=== PATIENT | male | born 2000 | race African-American/Black ===

== ENCOUNTER 2019-05-06 09:13 | Emergency (ER) | payer OTHER ==
[2019-05-06] MEDS ORDERED: Lidocaine 1% w/Epinephrine 1:100K 20 ML VIAL ONE (09:34)
== END 2019-05-06 10:15 ==
LOC: ERS 09:13
DX: S01.411A Laceration without foreign body of right cheek and temporomandibular area, initial encounter (principal); W11.XXXA Fall on and from ladder, initial encounter
CPT/HCPCS: 12011; J2001